=== PATIENT | female | born 1995 | race Caucasian/White ===

== ENCOUNTER 2021-11-17 10:21 | Emergency (ER) | payer OTHER ==
[~2021-11-17] VITALS: Ht 167.6 cm; Wt 79.8 kg
[2021-11-17] MEDS ORDERED: ATARAX,VISTARIL50 MG PO (11:30)
== END 2021-11-17 11:38 | disposition home or self-care (01) ==
LOC: ED 10:21
DX: F41.9 Anxiety disorder, unspecified (principal); Z88.0 Allergy status to penicillin; Z88.1 Allergy status to other antibiotic agents; Z88.8 Allergy status to other drugs, medicaments and biological substances; F17.200 Nicotine dependence, unspecified, uncomplicated

== ENCOUNTER 2021-12-05 10:48 | Emergency (ER) | payer OTHER ==
[~2021-12-05] VITALS: Wt 79.8 kg
[~2021-12-05 10:48] MED LIST: ATARAX,VISTARIL50 MG PO
[2021-12-05 11:39] LABS: BASO % 0.4 % (0.0-1.0); EOS # 0.1 10*3/uL (0.0-0.4); EOS % 1.1 % (1.0-4.0); HEMATOCRIT 44.2 % (37.0-47.0); LYMPH # 3.1 10*3/uL (1.3-4.4); LYMPH % 29.7 % (27.0-41.0); MEAN CELL VOLUME 87.2 fl (81.0-99.0); MEAN CORPUSCULAR HGB CONC 34.4 g/dl (33.0-37.0); MEAN PLATELET VOLUME 11.6 fl (9.6-12.3); MONO # 0.8 10*3/uL (0.1-1.0); MONO % 7.8 % (3.0-9.0); NEUT # 6.3 10*3/uL (2.3-7.9); NEUT % 60.7 % (47.0-73.0); PLATELET COUNT AUTOMATED 288 10*3/uL (130-400); RED BLOOD COUNT 5.07 10*6/uL (4.10-5.10); RED CELL DISTRI WIDTH 12.5 % (0-14.5); WHITE BLOOD COUNT 10.4 10*3/uL (4.8-10.8)
[2021-12-05 11:55] LABS: ALKALINE PHOSPHATASE 85 U/L (45-117); BUN 6 mg/dl (7-24); CHLORIDE 106 mmol/L (98-107); CREATININE 0.86 mg/dL (0.55-1.02); POTASSIUM 3.5 mmol/L (3.5-5.1); SGOT/AST 17 IU/L (3-35); SGPT/ALT 21 U/L (12-78); SODIUM 139 mmol/L (136-145); TOTAL PROTEIN 7.5 gm/dL (6.4-8.2)
[2021-12-05] MEDS ORDERED: HYDROXYZINE HCL25 MG PO (13:42)
== END 2021-12-05 13:46 | disposition home or self-care (01) ==
LOC: ED 10:48
PROVIDERS: Physician Assistant
DX: F41.9 Anxiety disorder, unspecified (principal); R05.9 Cough, unspecified; R07.9 Chest pain, unspecified

== ENCOUNTER 2024-09-11 18:53 | Emergency (ER) | payer MEDICAID ==
[~2024-09-11] VITALS: Ht 167.6 cm; Wt 81.6 kg
[~2024-09-11 18:53] MED LIST changes: +HYDROXYZINE HCL25 MG PO
[2024-09-11] MEDS ORDERED: Acetaminophen/Hydrocodone 5 MG/325 MG TABLET PO ONE (19:30)
[2024-09-11] MEDS ORDERED: Ondansetron Hydrochloride 4 MG TAB SL ONE (19:30)
[2024-09-11] MEDS ORDERED: CLINDAMYCIN HCL 300 MG CAPSULE PO ONE (19:30)
[2024-09-11] MEDS ORDERED: CLINDAMYCIN HC300 MG PO (19:32)
== END 2024-09-11 19:42 | disposition home or self-care (01) ==
LOC: ED 18:53
DX: K02.9 Dental caries, unspecified (principal); Z88.0 Allergy status to penicillin; Z88.1 Allergy status to other antibiotic agents; Z88.8 Allergy status to other drugs, medicaments and biological substances